=== PATIENT | female | born 1980 | race Caucasian/White ===

== ENCOUNTER 2025-09-14 09:32 | Emergency (ER) | payer BC, SELFPAY ==
[2025-09-14 09:52] VITALS: BP 113/68; PULSE 64; RESP 16; O2SAT 99; BMI 29.6
--- NOTE | 2025-09-14 10:16 | CRLHL7_ITS ---
For Patients: As a result of the Century Cures Act, medical imaging exams and procedure reports are released immediately into your electronic medical record. You may view this report before your referring provider. If you have questions, please contact your health care provider. INDICATION: Lower back pain COMPARISON: None. TECHNIQUE: Two view lumbar spine radiographs including AP and lateral. FINDINGS: Normal vertebral body segmentation and formation. No fracture. Normal alignment. Mild L5-S1 disc space narrowing. No facet arthritis. Normal bone mineralization. No focal bone lesions. Paraspinal soft tissues are unremarkable. IMPRESSION: Mild L5-S1 disc space narrowing. No acute osseous findings seen. Dictated by Raysa Huerta MD @ 09/14/2025 10:41:55 AM (Electronically Signed)
--- NOTE | 2025-09-14 10:17 | ED.BACK ---
HPI - Back Pain/Injury General Chief Complaint: Back Injury/Pain Stated Complaint: Bulging disk, painful back Time Seen by Provider: 09/14/25 10:12 History of Present Illness HPI Narrative: Patient is a 45-year-old woman with history of disc herniations in her low back in the distant past. She got better at that time with physical therapy. She has been doing well until yesterday when she tried to swing a heavy barn door closed. She felt a twinge in her low back and has had severe low back pain since. She has had no bowel or bladder symptoms no fevers no chills no night sweats no cough no shortness of breath no numbness no tingling no weakness. The pain is localized to the mid lumbar spine posteriorly. Pain is sharp. Related Data Home Medications ?Medication ?Instructions ?Recorded ?Confirmed levothyroxine .ROUTE 09/14/25 Allergies Allergy/AdvReac Type Severity Reaction Status Date / Time No Known Drug Allergies Allergy Verified 09/14/25 10:03 Review of Systems Status of ROS: Reports: 10 or more systems reviewed and unremarkable except as noted in History and below PFSH PFSH Social History Smoking Status: Never smoker Do you use any of these nicotine containing products: None Second hand tobacco smoke exposure: No How often do you have a drink containing alcohol: never AUDIT-C Alcohol total score: 0 Non-prescribed substance use: denies use Exam Narrative: Exam Narrative: EXAM GENERAL: Patient appears comfortable and well. EYES: No scleral icterus. LYMPH: No supraclavicular or cervical lymphadenopathy. SKIN: Visible skin seen during exam normal or with benign process only. EXT: No dependent lower extremity pedal edema. HEART: Regular rate and rhythm with no murmurs, rubs, or gallops. LUNGS: Clear to auscultation bilaterally with no crackles or wheezes. ABD: Soft, non tender, non distended. PSYCH: Good eye contact, speech is not pressured. Neurologic cranial nerves 2-12 grossly intact no focal defects. Const: Vital Signs, click to edit/add: Vital Signs - 24 hr 09/14/25 09:52 Pulse Rate [Radial ] 64 Respiratory Rate 16 Blood Pressure [Ri ght Upper Arm] 113/68 Pulse Oximetry 99 Oxygen Delivery Me thod Room Air Course Course ED Course: Patient seen and examined. Toradol given x-ray of the lumbar spine pending Vital Signs Vital signs: Initial Vital Signs Pulse Rate 64 09/14/25 09:52 Respiratory Rate 16 09/14/25 09:52 Blood Pressure 113/68 09/14/25 09:52 Blood Pressure Mean 83 09/14/25 09:52 Blood Pressure Position Supine 09/14/25 09:52 Pulse Oximetry 99 09/14/25 09:52 Oxygen Delivery Method Room Air 09/14/25 09:52 Vital Signs Pulse Rate 64 09/14/25 09:52 Respiratory Rate 16 09/14/25 09:52 Blood Pressure 113/68 09/14/25 09:52 Pulse Oximetry 99 09/14/25 09:52 Oxygen Delivery Method Room Air 09/14/25 09:52 Pulse Rate 64 09/14/25 09:52 Respiratory Rate 16 09/14/25 09:52 Blood Pressure 113/68 09/14/25 09:52 Pulse Oximetry 99 09/14/25 09:52 Oxygen Delivery Method Room Air 09/14/25 09:52 Medications Administered Medications: Discontinued Medications Generic Name Dose Route Start Last Admin Trade Name Freq PRN Reason Stop Dose Admin Hydromorphone HCl 0.5 mg 09/14/25 10:54 09/14/25 11:16 Hydromorphone 0.5 Mg/0.5 Ml Inj IM 09/14/25 10:55 0.5 mg ONCE ONE Administration Ketorolac Tromethamine 30 mg 09/14/25 10:16 09/14/25 10:32 Ketorolac 30 Mg/Ml Inj IM 09/14/25 10:17 30 mg ONCE ONE Administration MDM - Back Pain/Injury MDM Narrative Medical decision making narrative: Patient is a 45-year-old woman comes in with acute back pain. X-ray shows potentially discogenic changes between L5 and S1. Patient was treated with IM Toradol. This time will get up move around and syndrome with short course of prednisone as well as Vicodin for the next several days. No driving or using machinery. Stool softener as needed. If no improvement would recommend PT consult verses MRI this coming week. Discharge Plan Discharge Clinical Impression: Strain of lumbar region Patient Disposition: Home, Self-Care Condition: Stable Instructions: Back Pain (ED) Additional Instructions: Prednisone as directed [place] as directed Ice Follow-up with your doctor this week. Activity Level: No Restrictions Discharge Diet: Regular Prescriptions: No Action levothyroxine .ROUTE Follow Up/Referrals: Donya Gamez DO [Referring, Family Practice] Stand Alone Forms: [facility] Info Instructions
--- OUTSIDE RECORDS SUMMARY | 2025-09-14 10:33 | XMS_ITS | Clinical Summary ---
Author Organization [facility] Address [address] [place] [id number] Care Team Providers Care Web Knitter Name Role Phone Pcp, No Primary Care Provider Unavailabl e Allergies Active Allergy Reactions Criticality Noted Date Comments Adhesive Tape-Silicones Erythema 11/01/2018 bandaids Pseudoephedrine Syncope 01/16/2007 Medications lidocaine 4 % topical gelIndications: Skin tag of anus Apply topically to affected area(s) 3 times daily if needed. 1 Tube 1 9 Active triamcinolone (ARISTOCORT) 0.1 % ointmentIndicat ions:Labial burning Apply topically to affected area(s) 2 times daily. 15 g 0 Active levothyroxine (SYNTHROID) 125 mcg tabletIndicatio ns:Hypothyroidi sm (acquired) Take 1 Tablet (125 mcg) by mouth before breakfast. 93 Tablet 3 1 Active Active Problems Problem Noted Date Diagnosed Date Anal skin tag 05/24/2018 Overview (05/24/2018): Added automatically from request for surgery [id number] Elderly multigravida in third trimester 12/05/19 17 Overview (12/05/2016): Declined serum screening Rh negative status during 03/11/2013 Overview (03/11/2013): also Rh neg Unspecified hypothyroidism 06/28/2011 Herpes simplex vulvovaginitis 12/03/2010 ASCUS with positive high risk HPV cervical 10/01 Overview (01/09/2023): 08/2009 ASCUS/HPV positive 09/2009 [place]- cervicitis 04/2018- NIL/HPV negative 09/2021 UNS/HPV negative 11/2022 NIL/HPV+, 16/18 Negative ([facility]) Provider Plan: Supervision of other normal Overview (02/13/2017): Anemia Advnace maternal age 36 at delivery [facility] - deliver with Detert Hypothyroid Hx genital herpes Resolved Problems Problem Noted Date Diagnosed Date Resolved Date Supervision of other normal 05/20/2013 11/21/2014 Overview (06/14/2013): GBS positive Immunizations Immunization Administration Dates Next Due HepA-HepB (Twinrix) 10/17/2007,01/16/2007,2006 Influenza, IIV3 (Age >=3 years) 08/16/2013,07/20 Influenza, IIV4 08/30/2017,11/03/2016,07/13/2015 ,07/14/2014 MMR 07/29/1992,11/14/1980 Tdap 01/30/2017,03/24/2015,04/24/2013 ,12/12/2006 Family History Medical History Relation Name Comments Good Health Daughter [place] Thyroid Disease Maternal Aunt Hypothyroid Hypertension Maternal Grandfather Hyperlipidemia Maternal Grandmother Thyroid Disease Maternal Grandmother Goit er Other Mother arrhythmia Cancer-breast Paternal Aunt Asthma Sister Cancer-ovarian No Family History Relation Name Status Comments Daughter [place] Maternal Aunt Maternal Grandfather Maternal Grandmother Mother Paternal Aunt Sister Social History Tobacco Use Types Packs/Day Years Used Date Smoking Tobacco: Never Smokeless Tobacco: Never Tobacco Cessation:Counseling Given: Yes Alcohol Use Standard Drinks/Week Comments Yes 0 (1 standard drink = 0.6 oz pur e alcohol) rarely PHQ-2 Answer Date Recorded PHQ-2 TOTAL SCORE 0 06/08/2020 Social Connections Answer Date Recorded Frequency of Communication with Friends and Fami ly Not on file 10/30/2021 Financial Resource Strain Answer Date R ecorded Difficulty of Paying Living Expenses Not on file 10/30/2021 Difficulty of Paying Living Expenses Not on file 10/30/2021 Comments No Sex and Gender Information Value Date Recorded Sex Assigned at Not on file Legal Sex Female 5:24 AM CURING FINISHER Gender Identity Not on file Sexual Orientation Not on file Occupation Industry Job Start Date Job End Date homemaker Not on file Not on file Not on file Obstetrics History Para Term AB IAB SAB Ectopic Multiple Livin g Live Births 5 4 4 0 1 0 1 0 0 4 Date Outcome GA Total Labor Labor/2nd/3rd Weight Sex Type Anes PTL Anna Marie A1 A5 Name Clin SAB Comments:System Genera rosalio. Please review and update details. 10/31/19 12 Term 39w 0d 4.34 kg (9 lb 9 oz) F [place] Comments:Third degree laceration, GBS +. 06/05/20 13 Term 3.94 kg (8 lb 11 oz) F Vag emerald Comments:System Genera rosalio. Please review and update details. 06/02/20 15 Term 39w 6d 4.28 kg (9 lb 7 oz) 04/29/20 17 Term 40w 2d Vag Last Filed Vital Signs Vital Sign Reading Time Taken Comments Blood Pressure 134/79 10/14/2021 1:40 PM CURING FINISHER Pulse 77 10/14/2021 1:40 PM CURING FINISHER Temperature 36.4 C (97.6 F) 11/20/2018 2:40 PM CURING FINISHER Respiratory Rate 16 11/01/2018 1:40 PM CURING FINISHER Oxygen Saturation 100% 10/14/2021 1:40 PM CURING FINISHER Inhaled Oxygen Concentration - - Weight 92.6 kg (204 lb 1.6 oz) 10/14/2021 1:40 P M CURING FINISHER Height 172.2 cm (5' 7.8) 10/14/2021 1:40 PM CURING FINISHER Body Mass Index 31.22 10/14/2021 1:40 PM CURING FINISHER Plan of Treatment Health Maintenance Due Date Last Done Comments Hepatitis C screening for age 18-79 1997 Depression screening for age 12+ 06/10/2021 06/10/2020, 06/08/2020, 10/17/2018, Additional history exists BMI (ht and wt on same day) for age 18+ 10/14/2022 10/14/2021, 06/08/2020, 10/17/2018, Additional history exists Colonoscopy through age 75 2024 Mammogram for age 45-75 2024 06/24/2020, 06/18 Influenza Vaccine (#1) 2025 7, 11/03/2016, 07/13/2015, Additional history exists Pap test for age 21-65 12/06/2025 3 (Verified in Care Everywhere or Patient Record), 12/06/2022 (Verified in Care Everywhere or Patient Record), 10/14/2021, Additional history exists Lipids for age 45-75 10/14/2026 10/14/2021, 06/08/2020, 09/01/2009, Additional history exists Tetanus booster 01/30/2027 01/30/2017, 02/28, 04/24/2013, Additional history exists RSV vaccine for adults or (1 - 1-dose 75+ series) 2054 Hepatitis B series for 19+ Completed 10/17, 01/16/2007, 12/12/2006 HIV for age 15-65 Completed 11/03/2016, , 08/23/2012, Additional history exists Pneumococcal series for age 6-49 Aged Out No longer eligible based on patient's age to complete this topic Procedures Procedure Name Priority Date/Time Associated Diagnosis Comments LIPID PANEL W REFLEX MEASURED LDL Routine 10/14/2021 2:46 PM CURING FINISHER Lipid screening HPV HIGH RISK Routine 10/14/2021 2:30 PM CURING FINISHER Screening for cervical cancer XR MAMMO GLENN UNI ADDL VIEWS LEFT Routine 06/24/2020 2:17 PM CDT Abnormal mammogram ANTI HIV 1/2 Routine 11/03/2016 12:47 PM CURING FINISHER Supervision of other normal from Last 3 Months or Most Recently Relevant to Health Maintenance Results * (ABNORMAL) LIPID PANEL W REFLEX MEASURED LDL (10/14/2021 2:46 PM CURING FINISHER) CHOLESTEROL,TOTAL 243(H) 100 - 199 mg/dL 10/14/2021 9:15 PM CURING FINISHER [facility] TRIGLYCERIDES 79 <150 mg/dL 10/14/2021 9:15 PM CURING FINISHER [facility] HDL CHOLESTEROL 53 >40 mg/dL 9:15 PM CURING FINISHER [facility] NON-HDL CHOLESTEROL 190(H) <145 mg/dl 10/14/2021 9:15 PM CURING FINISHER [facility] CHOL/HDL RATIO 4.58(H) <4.50 10/14/2021 9:15 PM CURING FINISHER [facility] LDL CHOLESTEROL 174(H) <=130 mg/dL 10/14/2021 9:15 PM CURING FINISHER [facility] VLDL CHOLESTEROL 16 <=30 mg/dL 10/14/2021 9:15 PM CURING FINISHER [facility] PROVIDER ORDERED STATUS RANDOM 10/14/2021 9:15 PM CURING FINISHER [facility] Blood BLOOD SPECIMEN / Unknown Venipuncture / Unknown 10/14/2021 2:46 PM CURING FINISHER 10/14/2021 2:46 PM CURING FINISHER Cori Pollard MD CHEMISTRY Final Result [facility] [address] [place] [address], * HPV HIGH RISK (10/14/2021 2:30 PM CURING FINISHER) TYPE 16 Negative Negative 10/18/2021 1:59 PM CURING FINISHER [facility] TYPE 18 Negative Negative 10/18/2021 1:59 PM CURING FINISHER [facility] OTHER HIGH RISK TYPES Negative Negative 10/18/2021 1:59 PM CURING FINISHER [facility] Other (Cervical) Non-Blood / Unknown 10/14/2021 2:30 PM CURING FINISHER 10/15/2021 8:06 AM CURING FINISHER Narrative [facility] - 10/18/2021 1:59 PM CURING FINISHER HPV types 16, 18, 31, 33, 35, 39, 45, 51, 52, 56, 58, 59, 66 and 68 DNA were undetectable or below the pre-set threshold. Methodology: Josep Sharee 4800 HPV Test Cori Pollard MD MICROBIOLOGY Final Result [facility] [address] [place] [address], [place] * XR MAMMO GLENN UNI ADDL VIEWS LEFT (06/24/2020 2:17 PM CDT) Anatomical Region Laterality Modality BREASTS, Breast Left Mammography 06/24/2020 3:05 PM CDT Impressions 06/24/2020 3:31 PM CDT Normal dense fibroglandular tissue upper outer quadrant LEFT breast. No evidence of malignancy. RECOMMENDATIONS: Annual screening mammography. Results and recommendations discussed with the patient. BI-RADS Category 2: Benign Dictated by: Oscar Leo MD @06/24/2020 3:05:40 PM / CRL:michael Narrative 06/24/2020 3:31 PM CDT ADDITIONAL VIEWS LEFT DIGITAL MAMMOGRAM USING TOMOSYNTHESIS, 06/24/2020 CLINICAL HISTORY: LEFT breast mass/asymmetry. COMPARISON: 06/18/2020. TECHNIQUE: Digital LEFT mammogram in two projections. Tomosynthesis utilized. BREAST COMPOSITION: Scattered fibroglandular densities. FINDINGS: Spot 3D MLO and spot 3D CC LEFT breast mammogram submitted. Normal fibroglandular tissue is present in the upper outer quadrant of the LEFT breast without underlying mass. No architectural distortion. Benign incidental intramammary lymph node is present adjacent to this region within the axillary tail. Cori Pollard MD MAMMO Final Result * ANTI HIV 1/2 (11/03/2016 12:47 PM CURING FINISHER) HIV-1/HIV-2 ANTIBODY Non-Reacti ve Non-Reacti ve 11/03/2016 8:29 PM CURING FINISHER [facility] Blood BLOOD SPECIMEN / Unknown Venipuncture / Unknown 11/03/2016 12:47 PM CURING FINISHER 11/03/2016 12:47 PM CURING FINISHER Narrative [facility] - 11/03/2016 8:29 PM CURING FINISHER HIV-1 p24 and HIV-1/HIV-2 Ab not detected us Cori Pollard MD SEND OUTS Final Result [facility] [address] [place] [address], [place] from Last 3 Months or Most Recently Relevant to Health Maintenance Insurance [place] [address] Advance Directives * Full Code (Latest Code Status on File) Date Activated Date Inactivated Comments 11/01/2018 10:35 AM 11/01/2018 4:16 PM Question Answer Comments Code Status Discussion: Discussed Care Teams Web Knitter Relationship Specialty Start Date End Date Pcp, No . PCP - General 05/11/23
== END 2025-09-14 12:21 | disposition home or self-care (01) ==
PROVIDERS: Emergency Provider Internal Medicine; PCP Family Medicine
DX: S39.012A Strain of muscle, fascia and tendon of lower back, initial encounter (principal); X50.0XXA Overexertion from strenuous movement or load, initial encounter
CPT/HCPCS: 72100; 96372; 99283; 99284; J1171; J1885